=== PATIENT | female | born 1955 | race Caucasian/White ===

== ENCOUNTER 2017-03-19 10:44 | Emergency (ER) | payer BC ==
[2017-03-19] MEDS ORDERED: HYDROcodone/ACETAMIN 5-325 MG* 1 TAB PO ONE (11:42)
--- NOTE | 2017-03-19 12:39 | RAD ---
INDICATION: Atraumatic left knee pain in a patient 10 years status post TKA. COMPARISON: Postoperative left knee radiograph dated March 12, 2006 TECHNIQUE: 4 view radiograph of the left knee. FINDINGS: The left knee prosthesis is anatomically aligned in the AP, lateral and sunrise projections. There is no definite radiographic evidence of loosening or periprostatic fracture. There is no large joint effusion. Remaining visualized bones are intact and appropriately aligned. IMPRESSION: Anatomic alignment of left knee prosthesis without radiographic evidence of loosening or fracture. If the patient's symptoms persist, follow-up imaging is recommended.
[2017-03-19 13:07] VITALS: BP 112/64
--- NOTE | 2017-03-20 07:24 | ED ---
Amos Beckham Alfonso, scribed for Hunter Gu MD on 03/19/17 at 1206 . Lower Extremity - HPI Summary HPI Summary: This patient is a 61 year old F presenting to [facility] with a chief complaint of left knee pain since 1 week ago, worse since last night. The patient rates the pain 9/10 in severity. Symptoms aggravated by standing. Symptoms alleviated by nothing. PMHx includes left knee replacement in 2005. - History of Current Complaint Chief Complaint: EDExtremityLower Stated Complaint: LT KNEE PAIN Time Seen by Provider: 03/19/17 11:32 Hx Obtained From: Patient Onset of Pain: Prior to Arrival Onset/Duration: Worse Since - last night Severity Currently: Severe Pain Intensity: 9 Pain Scale Used: 0-10 Numeric Timing: Constant Location: Is Discrete @ - left knee Associated Signs And Symptoms: Positive: Negative Aggravating Factor(s): Standing Alleviating Factor(s): Nothing - Allergies/Home Medications Allergies/Adverse Reactions: Allergies Allergy/AdvReac Type Severity Reaction Status Date / Time Meloxicam Allergy Itching Verified 05/03/16 15:24 BANDAIDS Allergy REDNESS Uncoded 05/03/16 15:24 AROUND EDGES OF BANDAID PMH/Surg Hx/FS Hx/Imm Hx Endocrine/Hematology History: Denies: Hx Diabetes, Hx Thyroid Disease Cardiovascular History: Reports: Hx Hypertension - MEDS FOR HIGH BLOOD PRESSURE Denies: Hx Congestive Heart Failure, Hx Pacemaker/ICD, Other Cardiovascular Problems/Disorders Respiratory History: Reports: Hx Sleep Apnea Denies: Hx Asthma, Hx Chronic Obstructive Pulmonary Disease (COPD), Other Respiratory Problems/Disorders GI History: Denies: Hx Ulcer, Other GI Disorders History: Denies: Hx Renal Disease Musculoskeletal History: Reports: Hx Arthritis - LEFT KNEE,HIP, RIGHT KNEE, BILATERAL FINGERS, SHOULDERS Denies: Hx Osteoporosis, Other Musculoskeletal History Sensory History: Reports: Hx Contacts or Glasses - READING Denies: Hx Hearing Aid Opthamlomology History: Reports: Hx Contacts or Glasses - READING Neurological History: Denies: Other Neuro Impairments/Disorders Psychiatric History: Reports: Hx Anxiety - ON MEDICATION, Hx Depression - Cancer History Cancer Type, Location and Year: BREAST CA Hx Chemotherapy: No Hx Radiation Therapy: No - Surgical History Surgery Procedure, Year, and Place: [place] [facility] [place] [facility] [place] [facility] [place] LEFT KNEE [place]THROSCOPY[place] [facility] [place] 2007; LT KNEE REPLACEMENT '06;. 2006 [place] [facility] [place]. , [place] [facility] [place]. [place] [facility] [place] [facility] [place]ST[place] Hx Anesthesia Reactions: No Infectious Disease History: No Infectious Disease History: Denies: Hx Hepatitis, Hx Human Immunodeficiency Virus (HIV), Traveled Outside the US in Last 30 Days - Family History Known Family History: Positive: Diabetes Family History: Thyroid Disease, Kidney Cirrhosis - Social History Alcohol Use: None Substance Use Type: Reports: None Hx Tobacco Use: No Smoking Status (MU): Former Smoker Type: Cigarettes Amount Used/How Often: PACK A WEEK Have You Smoked in the Last Year: No Review of Systems Negative: Fever Positive: Other - left knee pain All Other Systems Reviewed And Are Negative: Yes Physical Exam - Summary Physical Exam Summary: VITAL SIGNS: Reviewed. GENERAL: Patient is a well-developed and nourished female who is lying comfortable in the stretcher. Patient is not in any acute respiratory distress. HEAD AND FACE: No signs of trauma. No ecchymosis, hematomas or skull depressions. No sinus tenderness. EYES: PERRLA, EOMI x 2, No injected conjunctiva, no nystagmus. EARS: Hearing grossly intact. Ear canals and tympanic membranes are within normal limits. MOUTH: Oropharynx within normal limits. NECK: Supple, trachea is midline, no adenopathy, no JVD, no carotid bruit, no c- spine tenderness, neck with full ROM. CHEST: Symmetric, no tenderness at palpation LUNGS: Clear to auscultation bilaterally. No wheezing or crackles. CVS: Regular rate and rhythm, S1 and S2 present, no murmurs or gallops appreciated. ABDOMEN: Soft, non-tender. No signs of distention. No rebound no guarding, and no masses palpated. Bowel sounds are normal. EXTREMITIES: No cyanosis or clubbing. Swelling at left knee. No deformity. Well healed of scar s/p total knee replacement. NEURO: Alert and oriented x 3. No acute neurological deficits. Speech is normal and follows commands. SKIN: Dry and warm. No erythema at the left knee. Triage Information Reviewed: Yes Vital Signs On Initial Exam: Initial Vitals Temp Pulse Resp BP Pulse Ox 99 F 80 16 111/63 97 03/19/17 11:24 03/19/17 11:24 03/19/17 11:24 03/19/17 11:24 03/19/17 11:24 Vital Signs Reviewed: Yes - David Coma Scale Coma Scale Total: 15 Diagnostics - Vital Signs Vital Signs Temp Pulse Resp BP Pulse Ox 03/19/17 11:24 99 F 80 16 111/63 97 - Laboratory Lab Statement: Any lab studies that have been ordered have been reviewed, and results considered in the medical decision making process. - Radiology Knee X-Ray Radiology Interpretation Completed By: Radiologist - Anatomic alignment of left knee prosthesis without radiographic evidence of loosening or fracture. If the patient's symptoms persist, follow-up imaging is recommended. ED physician has reviewed this radiology report and agrees. Lower Extremity Course/Dx - Course Assessment/Plan: This patient is a 61 year old F presenting to [facility] with a chief complaint of left knee pain since 1 week ago, worse since last night. The patient rates the pain 9/10 in severity. Symptoms aggravated by standing. Symptoms alleviated by nothing. PMHx includes left knee replacement in 2005. Knee X-Ray reveals Anatomic alignment of left knee prosthesis without radiographic evidence of loosening or fracture. If the patient's symptoms persist, follow-up imaging is recommended. ED physician has reviewed this radiology report and agrees. The patient is able to place weight on her knee, however, it increased the pain when she walks. There is no fever, erythema, or increased in knee temperature. Therefore, I have no suspicion for a septic or infected joint. The patient was instructed to return to the ED immediately for changing or worsening symptoms. She will be discharged home with PCP and orthopedic follow up. The patient is agreeable with this plan. The patient is hemodynamically stable, alert and oriented x3. - Diagnoses Provider Diagnoses: Left knee pain Discharge - Discharge Plan Condition: Stable Disposition: HOME Prescriptions: HYDROcodone/ACETAMIN 5-325 MG* [[place] 5-325 TAB*] 1 tab PO Q4H PRN #10 tab MDD 4 PRN Reason: Pain Patient Education Materials: Knee Pain (ED) Referrals: Darrian Lau MD [Primary Care Provider] - 3 Days Rangel Parnell MD [Medical Doctor] - 3 Days Additional Instructions: RETURN TO THE EMERGENCY DEPARTMENT FOR CHANGING OR WORSENING SYMPTOMS. The documentation as recorded by the Amos do Alfonso accurately reflects the service I personally performed and the decisions made by me, Hunter Gu MD.
== END 2017-03-19 13:29 | disposition home or self-care (01) ==
LOC: ED 10:44
DX: M25.562 Pain in left knee (principal); Z87.891 Personal history of nicotine dependence
CPT/HCPCS: 99282

== ENCOUNTER 2017-06-16 23:17 | Emergency (ER) | payer BC ==
--- OUTSIDE RECORDS SUMMARY | 2017-06-16 23:23 | XMS REPORT ---
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 Active Onset: 03/23/2017 Arthroplasty of knee Ursula Baum M.D. Active Family History Date Family Member(s) Problem(s) Comments General Diabetes General Cancer Social History Type Date Description Comments Marital Status Lives With Spouse Occupation Retired ETOH Use Denies alcohol use Smoking Patient is a former smoker Recreational Drug Use Denies Drug Use Exercise Type/Frequency Does not exercise Allergies, Adverse Reactions, Alerts Date Description Reaction Status Severity Comments 06/06/2016 Latex active 03/23/2017 Meloxicam active Medications Medication Date Status Form Strength Qnty SIG Indications Ordering Provider Diclofenac 03/23/ Active Tablets DR 75mg 30tabs 1 pill by M25.462 Ursula Sodium 2017 mouth Bautista, twice a M.D. day as needed for pain Hydrocodone-Shankar 03/23/ Active Tablets 5-325mg 90tabs 1 or 2 M25.462 Ursula taminophen 2017 tabs by Bautista, mouth M.D. every 6-8 hours as needed for pain Citalopram 00/00/ Active Tablets 40mg 1 by Unknown Hydrobromide 0000 mouth every day Enalapril 00/00/ Active Tablets 10mg 1 by Unknown Maleate 0000 mouth every day Vitamin B12 0000/ Active Tablets 1 by Unknown 0000 mouth every day Multivitamins 0000/ Active Capsules 1 by Unknown 0000 mouth every day Citracal Plus 00/00/ Active Tablets daily Unknown 0000 Anastrozole 00/ Active Tablets 1mg 1 by Unknown 0000 mouth every day Vitamin D-3 / Active Capsules 1000Unit 1 by Unknown 0000 mouth every day Tramadol HCL / Hx Tablets 50mg 1-2 Unknown 0000 tablets every 6 hours as needed Diclofenac / Hx Tablets DR 75mg take 1 Unknown Sodium 0000 - tablet twice a 2016 day with food Hydrocodone-Shankar / Hx Tablets 5-325mg Take One Unknown taminophen 0000 - Tablet Every 4 2017 Hours as Needed For Pain. Max. Daily Dose 4 T Depomedrol 40MG 00/ Active Injection Ursula 0000 Shaun Baum Depomedrol 40MG 00/00/ Active Injection Ursula 0000 Shaun Baum Vital Signs Date Vital Result Comment 05/28/2017 Height 67 inches 5'7" Weight 200.00 lb Heart Rate 76 /min BP Systolic 148 mmHg BP Diastolic 94 mmHg Body Temperature 97.7 F BMI (Body Mass Index) 31.3 kg/m2 04/09/2017 Height 67 inches 5'7" Weight 196.00 lb Heart Rate 68 /min BP Systolic 118 mmHg BP Diastolic 80 mmHg Respiratory Rate 16 /min Pain Level 3 BMI (Body Mass Index) 30.7 kg/m2 03/23/2017 Height 67 inches 5'7" Weight 196.00 lb Respiratory Rate 20 /min Body Temperature 97.3 F Pain Level 8 BMI (Body Mass Index) 30.7 kg/m2 06/08/2016 Height 67 inches 5'7" Weight 196.00 lb Heart Rate 68 /min BP Systolic 142 mmHg BP Diastolic 92 mmHg Respiratory Rate 16 /min Body Temperature 97.6 F BMI (Body Mass Index) 30.7 kg/m2 06/10/2015 Height 67 inches 5'7" Weight 186.00 lb BMI (Body Mass Index) 29.1 kg/m2 Results Test Date Test Result H/L Range Note Laboratory test finding 03/27/2017 C Reactive Protein 8.71 mg/L High < 5.00 1 Erythrocyte Sed Rate 31 mm/Hr High 0-30 CBC Auto Diff 03/27/2017 White Blood Count 4.8 10^3/uL 3.5-10.8 Red Blood Count 4.52 10^6/uL 4.0-5.4 Hemoglobin 12.5 g/dL 12.0-16.0 Hematocrit 38 % 35-47 Mean Corpuscular Volume 84 fL 80-97 Mean Corpuscular Hemoglobin 28 pg 27-31 Mean Corpuscular HGB Conc 33 g/dL 31-36 Red Cell Distribution Width 14 % 10.5-15 Platelet Count 274 10^3/uL 150-450 Mean Platelet Volume 10 um3 7.4-10.4 Abs Neutrophils 2.9 10^3/uL 1.5-7.7 Abs Lymphocytes 1.3 10^3/uL 1.0-4.8 Abs Monocytes 0.4 10^3/uL 0-0.8 Abs Eosinophils 0.2 10^3/uL 0-0.6 Abs Basophils 0.1 10^3/uL 0-0.2 Abs Nucleated RBC 0 10^3/uL Granulocyte % 59.8 % 38-83 Lymphocyte % 26.7 % 25-47 Monocyte % 8.6 % 1-9 Eosinophil % 3.6 % 0-6 Basophil % 1.3 % 0-2 Nucleated Red Blood Cells % 0 Bariatric Panel Post Op 05/26/2016 Ferritin 16.2 ng/mL 11-307 Vitamin B12 730 pg/mL 180-914 2 Folic Acid (Folate) > 20.00 ng/mL >3.99 Vitamin D Total 25(Oh) 18.0 ng/mL Low 30-50 Vitamin B1 (Whole Blood) 147 nmol/L 70-180 3 Vitamin E Level 9.8 mg/L 5.5 - 17.0 4 Comp Metabolic Panel 05/26/2016 Sodium 141 mmol/L 133-145 Potassium 4.1 mmol/L 3.5-5.0 Chloride 107 mmol/L 101-111 Co2 Carbon Dioxide 27 mmol/L 22-32 Anion Gap 7 mmol/L 2-11 Glucose 96 mg/dL 70-100 Blood Urea Nitrogen 22 mg/dL 6-24 Creatinine 0.76 mg/dL 0.51-0.95 BUN/Creatinine Ratio 28.9 High 8-20 Calcium 9.2 mg/dL 8.6-10.3 Total Protein 6.7 g/dL 6.4-8.9 Albumin 4.0 g/dL 3.2-5.2 Globulin 2.7 g/dL 2-4 Albumin/Globulin Ratio 1.5 1-3 Total Bilirubin 0.40 mg/dL 0.2-1.0 Alkaline Phosphatase 92 U/L 34-104 Alt 32 U/L 7-52 Ast 37 U/L 13-39 Egfr Non- 77.1 >60 Egfr 99.2 >60 5 CBC Auto Diff 05/26/2016 White Blood Count 4.7 10^3/uL 3.5-10.8 Red Blood Count 4.60 10^6/uL 4.0-5.4 Hemoglobin 12.9 g/dL 12.0-16.0 Hematocrit 39 % 35-47 Mean Corpuscular Volume 85 fL 80-97 Mean Corpuscular Hemoglobin 28 pg 27-31 Mean Corpuscular HGB Conc 33 g/dL 31-36 Red Cell Distribution Width 14 % 10.5-15 Platelet Count 173 10^3/uL 150-450 Mean Platelet Volume 11 um3 High 7.4-10.4 Abs Neutrophils 2.7 10^3/uL 1.5-7.7 Abs Lymphocytes 1.3 10^3/uL 1.0-4.8 Abs Monocytes 0.5 10^3/uL 0-0.8 Abs Eosinophils 0.2 10^3/uL 0-0.6 Abs Basophils 0 10^3/uL 0-0.2 Abs Nucleated RBC 0 10^3/uL Granulocyte % 57.5 % 38-83 Lymphocyte % 27.5 % 25-47 Monocyte % 10.8 % High 1-9 Eosinophil % 3.2 % 0-6 Basophil % 1.0 % 0-2 Nucleated Red Blood Cells % 0 Iron & Iron Binding Capacity 05/26/2016 Iron 69 g/dL 50-212 Unsaturated Iron Binding 392 g/dL Total Iron Binding Capacity 461 g/dL High 250-450 % Iron Saturation 15 % 15-55 1 Acute inflammation: >10.00 2 Normal Range 180 to 914 Indeterminate Range 145 to 180 Deficient Range <145 3 ADDITIONAL INFORMATION This test was developed and its performance characteristics determined by [facility] in a manner consistent with CLIA requirements. This test has not been cleared or approved by the U.S. Food and Drug Administration. Test Performed by: [facility] [place] [address] Assistant In Nursing: Jose Heaton II, M.D., Ph.D. 4 ADDITIONAL INFORMATION This test was developed and its performance characteristics determined by [facility] in a manner consistent with CLIA requirements. This test has not been cleared or approved by the U.S. Food and Drug Administration. Test Performed by: [place] [address] Assistant In Nursing: Jose Heaton II, M.D., Ph.D. 5 Because ethnic data is not always readily available, this report includes an eGFR for both -Americans and non- Americans. The National Kidney Disease Education Program (NKDEP) does not endorse the use of the MDRD equation for patients that are not between the ages of 18 and 70, are , have extremes of body size, muscle mass, or nutritional status, or are non- or non-. According to the National Kidney Foundation, irrespective of diagnosis, the stage of the disease is based on the level of kidney function: Stage Description GFR(mL/min/1.73 m(2)) 1 Kidney damage with normal or decreased GFR 90 2 Kidney damage with mild decrease in GFR 60-89 3 Moderate decrease in GFR 30-59 4 Severe decrease in GFR 15-29 5 Kidney failure <15 (or dialysis) Procedures Date CPT Code Description Status 07/30/2014 20300 Mastectomy Simple Complete Completed 07/13/2014 Mammogram Completed 07/06/2014 Mammogram Completed 05/15/2012 42875 EKG, Interpretation Only Completed 01/10/2012 23846 Polysomnography Sleep Staging 4+ Parameters W/Cpap Completed 12/13/2011 36879 Polysomnography Sleep Staging 4+ Parameters Completed 12/13/2011 90342 Polysomnography Sleep Staging 4+ Parameters Completed Encounters Type Date Location Provider CPT E/M Dx Office Visit 04/09/2017 [facility]um M.D. 40042 M25.562 10:15a [facility] [place] Z96.652 Office Visit 03/23/2017 2:30p [facility] Baum M.D. 14146 M25.562 [place] M25.462 Z96.652 T84.84xA Office Visit 06/08/2016 10:15a [facility] [place], [address] Z98.84 [facility] ED E55.9 Plan of Care Future Appointment(s):06/29/2017 1:45 pm - Ursula Baum M.D. at [facility]
[2017-06-17] MEDS ORDERED: oxyCODONE/Acetamin 5/325 MG* TAB PO ONE (01:33)
[2017-06-17 01:59] VITALS: BP 119/89
--- NOTE | 2017-06-17 02:36 | ED ---
Saman Beckham Tiffany, scribed for Orestes Berrios on 06/17/17 at 0009 . Lower Extremity - HPI Summary HPI Summary: This patient is a 61 year old F BIBA to [facility] accompanied by with a chief complaint of left knee pain s/p slipping and falling on ice two hours ago. The patient rates the pain 3/10 in severity. Symptoms aggravated by nothing. Symptoms alleviated by nothing. Patient denies hip pain and pelvic pain. The patient had surgery on her left knee 11 years ago. - History of Current Complaint Chief Complaint: EDExtremityLower Stated Complaint: LT KNEE INJURY Time Seen by Provider: 06/16/17 23:55 Hx Obtained From: Patient Mechanism Of Injury: Other - Slip and fall on ice Onset/Duration: Hours - 2 hrs Severity Currently: Mild Pain Intensity: 3 Pain Scale Used: 0-10 Numeric Associated Signs And Symptoms: Positive: Negative - Hip pain, pelvic pain Aggravating Factor(s): Nothing Alleviating Factor(s): Nothing - Allergies/Home Medications Allergies/Adverse Reactions: Allergies Allergy/AdvReac Type Severity Reaction Status Date / Time Meloxicam Allergy Itching Verified 06/16/17 23:53 BANDAIDS Allergy REDNESS Uncoded 06/16/17 23:53 AROUND EDGES OF BANDAID PMH/Surg Hx/FS Hx/Imm Hx Previously Healthy: No Endocrine/Hematology History: Denies: Hx Diabetes, Hx Thyroid Disease Cardiovascular History: Reports: Hx Hypertension - MEDS FOR HIGH BLOOD PRESSURE Denies: Hx Congestive Heart Failure, Hx Pacemaker/ICD, Other Cardiovascular Problems/Disorders Respiratory History: Reports: Hx Sleep Apnea Denies: Hx Asthma, Hx Chronic Obstructive Pulmonary Disease (COPD), Other Respiratory Problems/Disorders GI History: Denies: Hx Ulcer, Other GI Disorders History: Denies: Hx Renal Disease Musculoskeletal History: Reports: Hx Arthritis - LEFT KNEE,HIP, RIGHT KNEE, BILATERAL FINGERS, SHOULDERS Denies: Hx Osteoporosis, Other Musculoskeletal History Sensory History: Reports: Hx Contacts or Glasses - READING Denies: Hx Hearing Aid Opthamlomology History: Reports: Hx Contacts or Glasses - READING Neurological History: Denies: Other Neuro Impairments/Disorders Psychiatric History: Reports: Hx Anxiety - ON MEDICATION, Hx Depression - Cancer History Cancer Type, Location and Year: BREAST CA Hx Chemotherapy: No Hx Radiation Therapy: No - Surgical History Surgery Procedure, Year, and Place: [address] [place] [address]. 1984 [place] [facility] [place] [facility] [place]. 1997 LEFT [place]NEE [place], [facility] [place]; LT KNEE REPLACEMENT ';. 2005 LEFT KNEE [place]PLAC[place], [facility] [place] RT MASTECTOMY. , GASTRIC BYPASS, [facility] [place]. 2007 LEFT KNEE ARTHROSCOPY, [facility] [place]. 03/2012 COLONOSCOPY , [facility] [place] RT MASTECTOMY Hx Anesthesia Reactions: No - Immunization History Date of Tetanus Vaccine: unk Date of Influenza Vaccine: 2016 Infectious Disease History: No Infectious Disease History: Denies: Hx Hepatitis, Hx Human Immunodeficiency Virus (HIV), Traveled Outside the US in Last 30 Days - Family History Known Family History: Positive: Diabetes Family History: Thyroid Disease, Kidney Cirrhosis - Social History Alcohol Use: None Hx Substance Use: No Substance Use Type: Reports: None Hx Tobacco Use: Yes Smoking Status (MU): Former Smoker Type: Cigarettes Amount Used/How Often: PACK A WEEK Have You Smoked in the Last Year: No Review of Systems Negative: Fever Positive: Other - Left knee pain; NEGATIVE: pelvic pain, hip pain All Other Systems Reviewed And Are Negative: Yes Physical Exam - Summary Physical Exam Summary: Appearance: Well appearing, no pain distress Skin: warm, dry, reflects adequate perfusion Head/face: normal Eyes: EOMI, HAROON ENT: normal Neck: supple, non-tender Respiratory: CTA, breath sounds present Cardiovascular: RRR, pulses symmetrical Abdomen: non-tender, soft Bowel: present Musculoskeletal: deformed left knee, restricted range of motion in the left leg Neuro: normal, sensory motor intact, A&Ox3 Triage Information Reviewed: Yes Vital Signs On Initial Exam: Initial Vitals Temp Pulse Resp BP Pulse Ox 98.6 F 76 16 132/92 97 06/16/17 23:52 06/16/17 23:52 06/16/17 23:52 06/16/17 23:52 06/16/17 23:52 Vital Signs Reviewed: Yes - [place] Coma Scale Coma Scale Total: 15 Diagnostics - Vital Signs Vital Signs Temp Pulse Resp BP Pulse Ox 06/16/17 23:52 98.6 F 76 16 132/92 97 - Laboratory Lab Statement: Any lab studies that have been ordered have been reviewed, and results considered in the medical decision making process. - Radiology Left knee Radiology Interpretation Completed By: ED Physician - Tibial fracture Lower Extremity Course/Dx - Course Course Of Treatment: This patient is a 61 year old F c/o of left knee pain s/p slipping and falling on ice two hours ago. Knee X-Ray reveals, per ED physician , tibial fracture. We discussed patient care with Dr. Perez (orthopedics) who recommended follow up with orthopedics in three days. Patient will be discharged with prescription for Percocet and follow up from orthopedics. The patient is agreeable with this plan. - Diagnoses Differential Diagnosis/HQI/PQRI: Positive: Arthritis, Contusion, Fracture ( Closed), Strain Provider Diagnoses: Knee fracture, left, Tibial fracture - Physician Notifications Discussed Care Of Patient With: Leighann Perez Time Discussed With Above Provider: 00:46 Instructed by Provider To: Other - Dr. Perez (orthopedics) who recommended follow up from orthopedics in 3 days. Discharge - Discharge Plan Condition: Stable Disposition: HOME Prescriptions: oxyCODONE/Acetamin 5/325 MG* [Percocet 5/325 TAB*] 1 tab PO Q8H PRN #20 tab MDD 4 PRN Reason: Pain Patient Education Materials: Knee Pain (ED) Referrals: Darrian Lau MD [Primary Care Provider] - Ursula Baum MD [Medical Doctor] - 3 Days Additional Instructions: Follow up with Dr. Baum (orthopedics) in 3 days. Return to the Emergency Room if current symptoms worsen or if new symptoms develop. The documentation as recorded by the Saman do Tiffany accurately reflects the service I personally performed and the decisions made by , Orestes Berrios.
--- NOTE | 2017-06-17 09:08 | RAD ---
Indication: Left knee injury. 3 views of the left knee are reviewed. Soft tissue swelling is noted. Bony fragment off the tibial tuberosity is noted likely representing avulsion of the tibial tuberosity. The prosthesis appears to be displaced. IMPRESSION: Avulsion of the tibial tuberosity. Patient is status post left knee replacement.
== END 2017-06-17 01:58 | disposition home or self-care (01) ==
LOC: ED 23:17
DX: S82.142A Displaced bicondylar fracture of left tibia, initial encounter for closed fracture (principal); W00.0XXA Fall on same level due to ice and snow, initial encounter; Y93.9 Activity, unspecified; Y92.9 Unspecified place or not applicable; Y99.9 Unspecified external cause status; Z87.891 Personal history of nicotine dependence
CPT/HCPCS: 99282

== ENCOUNTER 2017-06-27 09:13 | Inpatient (IN) | payer BC ==
[~2017-06-27 09:13] MED LIST: Buffered Lidocaine 0.9% SYRIN* 5 ML/SYR SYRINGE INTRADERM ONE; Dexamethasone IV* 4 MG/ML 1 ML (4 MG) IV SLOW PU ONE; Famotidine IV* 10 MG/ML 2 ML (20 mg) IV ONE
[2017-06-27] MEDS ORDERED: Famotidine IV* 10 MG/ML 2 ML (20 mg) ONE (09:32)
[2017-06-27] MEDS ORDERED: Dexamethasone IV* 4 MG/ML 1 ML (4 MG) ONE (09:32)
[2017-06-27] MEDS ORDERED: Buffered Lidocaine 0.9% SYRIN* 5 ML/SYR SYRINGE ONE (09:32)
[2017-06-27] MEDS ORDERED: ceFAZolin 2 GM PREMIX (*) 2 GM/50 ML BAG IVPB ONE (09:32)
[2017-06-27] MEDS ORDERED: fentaNYL* 50 MCG/ML 5 ML VIAL (250 MCG VIAL) ONE (11:30)
[2017-06-27] MEDS ORDERED: Atracurium* 10 MG/ML 10 ML VIAL ONE (11:30)
[2017-06-27] MEDS ORDERED: Ketorolac INJ* 30 MG/ML 1 ML VIAL ONE (11:31)
[2017-06-27] MEDS ORDERED: Ondansetron INJ* 2 MG/ML VIAL ONE (11:31)
[2017-06-27] MEDS ORDERED: Propofol* 10 MG/ML 20 ML BTL IV PUSH ONE (11:31)
[2017-06-27] MEDS ORDERED: Lidocaine 2% PF * 5 ML VIAL ONE (11:31)
[2017-06-27] MEDS ORDERED: Midazolam* 1 MG/ML 10 ML VIAL (10 MG) ONE (11:31)
[2017-06-27] MEDS ORDERED: fentaNYL* 50 MCG/ML 2 ML VIAL (100 MCG VIAL) ONE ×2 (12:36→12:54)
[2017-06-27] MEDS ORDERED: Naloxone* 0.4 MG/ML 1 ML VIAL IV PRN (13:08)
[2017-06-27] MEDS ORDERED: fentaNYL* 50 MCG/ML 2 ML VIAL (100 MCG VIAL) IV PRN (13:08)
[2017-06-27] MEDS ORDERED: Scopolamine 1.5 mg* PATCH TRANSDERM PRN (13:08)
[2017-06-27] MEDS ORDERED: Ondansetron INJ* 2 MG/ML VIAL IV PRN (13:08)
[2017-06-27] MEDS ORDERED: DiMENhydriNATE IV* 50 MG/ML VIAL IV PUSH PRN (13:08)
[2017-06-27] MEDS ORDERED: Metoprolol Tartrate IV* 1 MG/ML 5 ML VIAL ONE (13:15)
[2017-06-27] MEDS ORDERED: EPHEDrine (Pressors)* 50 MG/ML VIAL ONE (14:39)
--- NOTE | 2017-06-27 18:22 | RAD ---
INDICATION: Displaced fracture of the LEFT tibial tuberosity. COMPARISON: No relevant prior exams available on the [facility] PACS for comparison. TECHNIQUE: 7.4 seconds fluoroscopy. REPORT AND IMPRESSION: 6 spot images of the LEFT documented a Benson type B spiral fracture of the distal fibula terminating inferiorly at the level of the ankle mortise with only one cortex width lateral displacement and slight widening of the ankle mortise. CPT II Codes: 6045F
--- NOTE | 2017-06-27 18:28 | RAD ---
INDICATION: Open reduction and internal fixation LEFT tibial tuberosity. COMPARISON: June 17, 2017 radiographs. TECHNIQUE: 62.6 seconds fluoroscopy. FINDINGS: Spot images document placement of a solitary screw at the tibial tuberosity fracture site with restored anatomic alignment and a cerclage wire extending between the patella and the proximal tibia inferior to the level of the tibial tuberosity fracture site. IMPRESSION: Procedural fluoroscopy. CPT II Codes: 6045F
[2017-06-27] MEDS ORDERED: oxyCODONE/Acetamin 5/325 MG* TAB ONE ×2 (19:03→23:44)
[2017-06-27] MEDS ORDERED: HYDROmorphone INJ* 1 MG/ML CARPUJECT SYRINGE ONE (19:03)
[2017-06-27] MEDS: HYDROmorphone INJ* 1 MG/ML CARPUJECT SYRINGE IV PRN ×2 (19:05→19:10)
[2017-06-27] MEDS: oxyCODONE/Acetamin 5/325 MG* TAB PO PRN ×2 (19:08→19:09)
[2017-06-27] MEDS ORDERED: Magnesium Hydroxide LIQ* 30 ML UDC PO PRN (19:21)
[2017-06-27] MEDS ORDERED: Morphine INJ* 2 MG/ML 1 ML SYRINGE (TWO MG - NEW SYRINGE VERSION) IV PRN (19:21)
[2017-06-27] MEDS ORDERED: Ondansetron TAB* 4 MG PO PRN (19:21)
[2017-06-27] MEDS ORDERED: oxyCODONE TAB* 5 MG TAB PO PRN (19:21)
[2017-06-27] MEDS ORDERED: ZOLMITRIPTAN 5 MG PO PRN (19:33)
[2017-06-27] MEDS ORDERED: Morphine INJ* 2 MG/ML 1 ML SYRINGE (TWO MG - NEW SYRINGE VERSION) ONE (21:50)
--- NOTE | 2017-06-27 21:58 | RAD ---
Indication: Traumatic injury with tibial tuberosity periprosthetic fracture. Assess for ankle fracture. Comparison: Spot fluoroscopic images of the same date. Technique: AP, mortise, and crosstable lateral views LEFT ankle. Report: Splint limits image quality. Oblique grossly nondisplaced fracture of the distal metaphysis of the fibula terminating inferiorly at the level of the ankle mortise. No associated fracture of the medial malleolus. Congruent ankle mortise. Bone density appears decreased throughout. IMPRESSION: Benson type B distal fibular fracture without displacement.
[2017-06-27] MEDS: ceFAZolin 1 GM VIAL(*) 1 GM in NS 0.9% 50 ML* 50 ML IVPB SCH (23:03)
[2017-06-28] MEDS: Aspirin TAB* 325 MG PO SCH ×3 (03:03→21:40)
[2017-06-28] MEDS: Calcium Citrate TAB* 200 MG PO SCH ×3 (03:03→21:42)
[2017-06-28] MEDS: Magnesium Hydroxide LIQ* 30 ML UDC PO SCH ×3 (03:03→21:40)
[2017-06-28] MEDS: oxyCODONE/Acetamin 5/325 MG* TAB PO PRN ×4 (04:25→17:52)
[2017-06-28] MEDS: ceFAZolin 1 GM VIAL(*) 1 GM in NS 0.9% 50 ML* 50 ML IVPB SCH ×2 (06:01→15:35)
[2017-06-28 06:15] LABS: EGFR Non-African American 76.9 (>60)
[2017-06-28] MEDS ORDERED: Anastrozole (NF) 1 MG TAB PO SCH (09:00)
[2017-06-28] MEDS: Enalapril TAB* 5 MG PO SCH (09:46)
[2017-06-28] MEDS: Citalopram TAB* 40 MG PO SCH (09:47)
[2017-06-28] MEDS: Multivitamins/Minerals TAB PO SCH (09:47)
[2017-06-28] MEDS: Cholecalciferol TAB* 1000 UNITS PO SCH (09:48)
[2017-06-28] MEDS: Ascorbic Acid TAB* 500 MG PO SCH (09:48)
[2017-06-28] MEDS: PTO: Anastrozole (NF) 1 MG TAB PO SCH (10:39)
--- NOTE | 2017-06-28 13:23 | PN ---
Progress Note - Progress Note Date of Service: 06/28/17 SOAP: Subjective: []Patient seen at bedside. She is in a great deal of pain and concerned about going home at this time. Objective: []General: Calm and cooperative, NAD LLE: Splint CDI. Sensation intact and brisk capillary refill of exposed toes. Vital Signs Temp 98.7 F 06/28/17 11:06 Pulse 78 06/28/17 11:06 Resp 16 06/28/17 12:20 BP 108/65 06/28/17 11:06 Pulse Ox 98 06/28/17 11:06 Intake & Output 06/27/17 06/28/17 06/28/17 18:59 06:59 18:59 Intake Total 7567 613 2339 Output Total 0 0 Balance 8124 354 6623 Weight 200 lb Intake: IV Fluids 0299 871 6981 Cefazolin 55 LR 1300 200 980 NS 50ML, Cefazolin 2G 50 IVPB 55 Cefazolin 55 Oral 400 Output: Urine 0 0 Other: Estimated Void Medium Estimated Blood Loss MINIMAL Comment # Voids 1 Laboratory Last Values Sodium 136 mmol/L (133-145) 06/28/17 05:49 Potassium 3.8 mmol/L (3.5-5.0) 06/28/17 05:49 Chloride 106 mmol/L (101-111) 06/28/17 05:49 Carbon Dioxide 24 mmol/L (22-32) 06/28/17 05:49 Anion Gap 6 mmol/L (2-11) 06/28/17 05:49 BUN 24 mg/dL (6-24) 06/28/17 05:49 Creatinine 0.76 mg/dL (0.51-0.95) 06/28/17 05:49 Est GFR ( Amer) 98.8 (>60) 06/28/17 05:49 Est GFR (Non-Af Amer) 76.9 (>60) 06/28/17 05:49 BUN/Creatinine Ratio 31.6 (8-20) H 06/28/17 05:49 Glucose 149 mg/dL (70-100) H 06/28/17 05:49 Calcium 8.4 mg/dL (8.6-10.3) L 06/28/17 05:49 Assessment: []POD 1 s/p left tibial tuberosity ORIF, patellar ostectomy Plan: []NWB LLE Dr. Patel will see patient tonight for further discussion of plan May require rehab <Taisha Ramsay - Last Filed: 06/28/17 13:30> - Progress Note SOAP: Subjective: Pain left knee and ankle. Doesn't think can go home with NWB LLE. Objective: NAD. Comfortable. LLE - knee brace and short leg splint - NVID x-rays from PACU show ~ 2mm displacement of lateral malleolus, symmetric mortisse Assessment: POD 1 ORIF left periprosthetic tibial tuberosity fracture Closed treatment left ankle fracture Plan: - PT - Pain control - We discussed intra-op and postop xrays, diagnosis of left ankle lateral malleolus fracture. Stable per stress testing intraop. 2 mm of displacement can be treated non-op or op. We discussed benefits and risks of each. I was happy to treat either way. Given it is less than 3mm with stable mortisse, patient's age and her presence of TKA, we decided to treat non-op - Dispo planning - f/u with mein office ~ 14 days postop with xrays and wound check <Austyn Patel - Last Filed: 06/28/17 22:39>
[2017-06-29] MEDS: oxyCODONE/Acetamin 5/325 MG* TAB PO PRN ×3 (00:25→17:23)
[2017-06-29] MEDS: PTO: Anastrozole (NF) 1 MG TAB PO SCH (09:59)
[2017-06-29] MEDS: Enalapril TAB* 5 MG PO SCH (09:59)
[2017-06-29] MEDS: Aspirin TAB* 325 MG PO SCH ×2 (10:00→21:17)
[2017-06-29] MEDS: Citalopram TAB* 40 MG PO SCH (10:00)
--- NOTE | 2017-06-29 10:28 | PN ---
Progress Note - Progress Note Date of Service: 06/29/17 SOAP: Subjective: [Pt was seen sitting up in bed today. She states that she is feeling quite well. Pain is mild and well controlled. States that she was feeling some numbness and tingling of the toes yesterday but has noticed that it is improving today. She admits to vomiting a small amount this am but has not had any issue since then. She states that is hoping to go to [facility]RU today if possible. ] Objective: [General: Pt is alert and oriented x3 MSK: LLE: Dressing is c/d/i. Knee immobilize is in place and locked at 0. Pt is able to wiggle toes and has sensation in toes. Cap refill is less than 2 seconds. ] Vital Signs Temp 98.0 F 06/29/17 07:15 Pulse 81 06/29/17 07:15 Resp 16 06/29/17 09:32 BP 119/69 06/29/17 07:15 Pulse Ox 97 06/29/17 08:00 Intake & Output 06/28/17 06/29/17 06/29/17 18:59 06:59 18:59 Intake Total 1285 610 240 Output Total 825 0 Balance 1285 -215 240 Intake: IV Fluids 1085 Cefazolin 105 LR 980 Oral 200 610 240 Output: Urine 825 0 Other: Estimated Void Medium # Bowel Movements 0 # Voids 1 Assessment: [POD 2 ORIF left periprosthetic tibial tuberosity fracture Closed treatment left ankle fracture] Plan: [Continue with splint of left ankle Continue with NWB LLE Continue with PT Possible PMRU today. ]
[2017-06-29] MEDS: Ascorbic Acid TAB* 500 MG PO SCH (10:31)
[2017-06-29] MEDS: Multivitamins/Minerals TAB PO SCH (10:31)
[2017-06-29] MEDS: Cholecalciferol TAB* 1000 UNITS PO SCH (10:31)
[2017-06-29] MEDS: Calcium Citrate TAB* 200 MG PO SCH ×2 (10:32→21:18)
[2017-06-29] MEDS: Magnesium Hydroxide LIQ* 30 ML UDC PO SCH ×2 (10:34→21:18)
[2017-06-29 11:23] LABS: ABS Basophils 0 10^3/ul (0-0.2); ABS Eosinophils 0 10^3/ul (0-0.6); ABS Lymphocytes 0.8 10^3/ul (1.0-4.8); ABS Monocytes 0.5 10^3/ul (0-0.8); ABS Neutrophils 3.9 10^3/ul (1.5-7.7); ABS Nucleated RBC 0 10^3/ul; Eosinophil % 0.6 % (0-6); Hematocrit 27 % (35-47); Hemoglobin 9.1 g/dl (12.0-16.0); Mean Corpuscular HGB Conc 34 g/dl (31-36); Mean Corpuscular Hemoglobin 28 pg (27-31); Mean Corpuscular Volume 84 fL (80-97); Mean Platelet Volume 10 um3 (7.4-10.4); Nucleated Red Blood Cells % 0; Platelet Count 181 10^3/ul (150-450); Red Blood Count 3.23 10^6/ul (4.0-5.4); Red Cell Distribution Width 16 % (10.5-15); White Blood Count 5.2 10^3/ul (3.5-10.8)
[2017-06-29 11:36] LABS: EGFR Non-African American 84.5 (>60)
--- NOTE | 2017-06-29 15:12 | OP ---
OPERATIVE REPORT: DATE OF OPERATION: 06/27/17 DATE OF : 51 SURGEON: Austyn Patel MD VULCANIZER OPERATOR: JUAN CARLOS Cristina A physician admin assistant was required for the length of the procedure for help with positioning, instrumentation and closure. ANESTHESIOLOGIST: Dr. Gee Nolan. ANESTHESIA: General anesthesia. PRE-OP DIAGNOSES: 1. Left knee periprosthetic tibial tuberosity fracture with patellar tendon avulsion. 2. History of painful left total knee arthroplasty, 2005, with 2006 arthroscopic lateral release and anterior debridement, both done by Dr. Doll. 3. Left ankle pain. POST-OP DIAGNOSES: 1. Left knee periprosthetic tibial tuberosity fracture, a patellar tendon avulsion. 2. History of painful left total knee arthroplasty. 3. Lateral patellofemoral impingement. 4. Left knee patella baja/infera. 5. Left total knee arthroplasty, stable components and no polyethylene wear. 6. Left ankle lateral malleolus fracture. OPERATIVE PROCEDURE: 1. Open reduction internal fixation, left tibial tuberosity fracture, periprosthetic. 2. Left knee open ostectomy. 3. Left knee, open evaluation of components of total knee arthroplasty. 4. Examination under anesthesia, left ankle (stress test radiographic views). 5. Closed treatment of left ankle lateral malleolus fracture 6. Short leg splint application left ankle ANTIBIOTICS: Ancef 2 g IV. IV FLUIDS: 1200 cc crystalloid. TOURNIQUET TIME: 150 minutes total at 300 mmHg. This was subdivided into 120 minutes up of tourniquet, then down for approximately 1 hour, then up for 30 additional minutes. COMPLICATIONS: None. ESTIMATED BLOOD LOSS: Less than 100 cc. IMPLANTS: One Synthes 4.0 mm cancellous screw with washer, fully threaded. Two biocomposite Mitek Diogenes and Diogenes gryphon anchors. One metal suture anchor, 3.5 mm in size, from [employer]. 16-gauge steel wire. SPECIMEN: None. 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 The patient went to emergency room where she was placed in a knee immobilizer and given [place]. X-rays determined that she had a tibial tuberosity fracture. No clear loosening in the components was noted by x-ray. The patient's left knee orthopedic history was significant for a left total knee arthroplasty, posterior stabilized, by Dr. Doll in 2005. Patient had a John NexGen Legacy posterior stabilized knee placed. The patient states that after that surgery she always had some anterior knee pain and some limitation of knee flexion. In 2006, Dr. Doll performed an arthroscopic lateral retinacular release of that knee. The patient continued, however, to have some anterior knee pain. The patient more recently saw Dr. Baum in 2016 complaining of some knee pain and swelling, mostly anterior. The patient was noted to be diabetic with a hemoglobin A1c of 6.3 status post gastric bypass surgery. Dr. Baum detected a slightly increased ESR and CRP, but no left shift or elevated white count. The patient was offered a polyethylene exchange, liner exchange, but declined and it was thought that the effusion might be secondary to polyethylene wear. I discussed the surgical procedure with the patient. I discussed how potentially devastating an extensor mechanism injury can be in a patient with a knee arthroplasty in place. Therefore, I was guarded about the prospects for successful surgical treatment. I discussed open reduction internal fixation with her. As well as I discussed evaluating the implants for their stability. I told the patient that I might consider evaluating the patellofemoral compartment given her long history of anterior knee pain for its fitness. In the preoperative holding, just prior to surgery, the patient described some left ankle pain that she had not before shared with me. I therefore agreed to image that intraoperatively and evaluate and treat as needed. DESCRIPTION OF PROCEDURE: In preoperative holding, the patient signed a surgical written consent form. Prior to that signature, we had discussed risks and potential complications including bleeding, infection, nerve or blood vessel injury, blood clot, knee pain, stiffness, failure of extensor mechanism repair. The patient's operative extremity was marked in preoperative holding. The patient was taken back to the operating room and placed supine on operating room table. The patient was sedated and intubated. A radiolucent table was used. [place] bump was placed under the left hemipelvis. Bone foam was applied. A mini time-out was performed prior to draping. Large C-arm was brought in. C- arm images were obtained of the left ankle. Indeed, there was seen a left ankle lateral malleolus fracture, minimally displaced. No medial malleolus fracture or posterior malleolus fracture was detected. Minimal displacement along the lateral malleolus fracture line was appreciated, approximately 2 to 3 mm to my eyes. I performed an external rotation stress test view. This showed, at most, gapping of one or so additional millimeters. I decided at this point, that I was going to mobilize the ankle with a splint at the conclusion of the procedure. I would get formal x-rays postoperative that I could more accurately measure the amount of displacement present, and discuss postoperatively, any need for a left ankle surgery, with plates and screws. However, I thought that it was unlikely that this would be required. The patient's left ankle was stable to external rotation stress testing and displacement was minimal. The left lower extremity had a proximal thigh tourniquet applied. The left lower extremity was prepped with chlorhexidine about the foot and ChloraPrep from foot to thigh. Draping was performed. Surgical time-out was performed. An Esmarch was applied and the tourniquet was elevated. An additional sterile bump was placed under the knee to get the knee to approximately 45 degrees of flexion. I made a skin incision, midline, from the distal end of the prior surgical incision scar down to distal to the tibial tuberosity midline anterior. I switched knives and I dissected down to the extensor mechanism. I saw, clearly, the avulsed small amount of bone with patellar tendon attached. There was significant amount of clotted blood that was removed from the wound. Irrigation. I probed the implants with metal instrument and they were stable. I decided that I would address the patellofemoral compartment and the cause of the patient's chronic pain, when I encountered significant patella baja and fibrotic tissue deep to the patellar tendon and patellar button. At this point, since I would be exposing more of the total knee arthroplasty implants, I had myself and my assistants switch to enclosed head gear. We also applied Ioban to the leg. I made a medial parapatellar arthrotomy, after having extended the skin incision more proximally along prior skin incision line. Medial parapatellar arthrotomy was continued down into the joint. At this point, all components could be visualized and were probed and all found to be stable. No aware of the liner or the patellar button. There is significant fibrotic tissue on the undersurface of the patella. This was removed with a knife as well as with our electrocautery. I noted that the patellar button seemed slightly undersized. There was also a significant shelf of patellar bone present, exposed laterally, that was clearly likely to be impinging along the lateral femoral condyle metal component. Therefore, I decided to remove this possible source of painful bony impingement. With rongeurs, I removed the exposed lateral patella, lateral to the patellar button. There was also some bone distal to the patella button that I thinned out, so as not to disrupt the extensor mechanism there, but so as to make the bone slightly less prominent, decreasing the likelihood of postoperative patella baja. I next inspected again the bone attached to the patellar tendon. This bone was very thin, and slightly comminuted. Merely a shell of bone attached to the patellar tendon. I reduced the bony fragments to the tibial tuberosity after cleaning both off with curettes and performing irrigation throughout the knee with pulsatile lavage. I placed a K-wire across the fracture sites and obtained images that showed a reduction of the tibial tuberosity bony fragment. I made a vertical approximately 8 mm slit in the medial aspect of the patellar tendon into the tibial tuberosity fragment. I drilled and then placed a 4.0 mm cancellous screw with washer, bicortically from a tibial tuberosity fracture fragment, directed posteromedially to the posterior cortex of the proximal tibial. My bite was good. I was very happy with the screw. I then attempted to place a screw similarly from the tibial tuberosity bone fragment to the posterolateral cortex of the proximal tibia. I placed this screw using the same technique. However, the bite was not good. The bony fragments along this part of the tibial tuberosity were too thin for a good bite. Therefore, that screw and washer were removed. At this point, I placed suture anchors as per my preoperative plan. I placed 2 Mitek gryphon double-loaded suture anchors. The suture anchors were each placed just distal to the fracture site into cortical bone about the anterior tibia just distal to the fracture line. With each suture anchor, I placed 1 stitch with a Krackow stitch up and down the patellar tendon. With the other stitch, I placed a horizontal mattress stitch from each suture anchor. With this fixation alone, the fracture seemed well reduced and the patellar tendon seemed well attached and reduced with some gentle flexion of the knee. I then had available a metal anchor and placed a metal [employer] 3.5 mm anchor about the medial tibial tuberosity and placed 2 horizontal mattress stitches from that anchor. I next placed my steel wire. I drilled a transverse tunnel, with a small, smaller than 2.0 mm drill bit, from medial to lateral about the anterior tibia distal to the fracture site. I placed a similar transverse drill tunnel through the patella at about its mid point from proximal to distal and about one third of the depth from superficial to deep. I then placed the stainless steel 16-gauge wire through these tunnels and crossed them in a figure-8 pattern superficial to the extensor mechanism. This steel wire was tightened. I next tested my repair. Patient was able to flex her knee passively to 90 degrees without any disruption or movement of the bony reduction and patellar tendon reconstruction. I was very happy with the stability of this repair therefore. Additional pulsatile lavage of tissues. With the knee flexed, we performed a closure of the medial parapatellar arthrotomy using figure-8 stitches using Vicryl 0 or Ethibond 0 suture. Both types of suture were used. Closure of the subcutaneous tissue with buried simple stitches using Vicryl 2-0 suture. Closure of the skin with damian. Xeroform, 4x4's, ABDs, sterile Webril over the knee. Shankar bandage from thigh to lower leg. The ankle then had a splint placed, left ankle. Webril was placed about the left ankle. A posterior plaster splint followed by sugar-tong medial to lateral plaster splint was placed and overwrapped with an Shankar bandage. We then applied a knee brace locked in extension. The patient was then awakened and extubated and brought to the PACU. DISPOSITION: The patient was initially planned for discharge. She had discomfort in PACU, understandable given the major nature of the surgery. As well, she did not think she would be able to deal with nonweightbearing postoperatively at home from a functional perspective. Therefore, the patient was admitted. The patient was to get aspirin b.i.d. for DVT prophylaxis, oral and IV narcotics for pain control, a physical therapy consult in the morning. I also got formal x- ray views, 3 views of the left ankle in PACU for my evaluation. [id number]/[facility] #: [id number] ANURADHA
[2017-06-30] MEDS: Calcium Citrate TAB* 200 MG PO SCH ×2 (08:33→20:16)
[2017-06-30] MEDS: PTO: Anastrozole (NF) 1 MG TAB PO SCH (08:34)
[2017-06-30] MEDS: Enalapril TAB* 5 MG PO SCH (08:34)
[2017-06-30] MEDS: Aspirin TAB* 325 MG PO SCH ×2 (08:34→20:16)
[2017-06-30] MEDS: oxyCODONE/Acetamin 5/325 MG* TAB PO PRN ×2 (08:35→20:15)
[2017-06-30] MEDS: Multivitamins/Minerals TAB PO SCH (08:35)
[2017-06-30] MEDS: Ascorbic Acid TAB* 500 MG PO SCH (08:35)
[2017-06-30] MEDS: Cholecalciferol TAB* 1000 UNITS PO SCH (08:35)
[2017-06-30] MEDS: Citalopram TAB* 40 MG PO SCH (08:35)
[2017-06-30] MEDS: Magnesium Hydroxide LIQ* 30 ML UDC PO SCH ×2 (08:36→20:16)
--- NOTE | 2017-06-30 10:21 | PN ---
Progress Note - Progress Note Date of Service: 06/30/17 SOAP: Subjective: [Pt was seen today sitting up in bed. Pt states that she is doing well. Pain is well controlled with medication. She states that the numbness and tingling of her L foot is continuing to recede. Pt denies any chest pain, n/v. ] Objective: [General: pt is A&O, NAD MSK: LLE: pt continues to have dressings in place. Dressing is c/d/i. Left ankle splint is also c/d/i. Pt is able to wiggle toes, cap refill is less than 2 seconds. Vital Signs Temp 98.2 F 06/30/17 04:15 Pulse 69 06/30/17 04:15 Resp 16 06/30/17 08:35 BP 117/71 06/30/17 04:15 Pulse Ox 100 06/30/17 04:15 Intake & Output 06/29/17 06/30/17 06/30/17 18:59 06:59 18:59 Intake Total 240 1040 200 Output Total 450 450 Balance -210 590 200 Intake: Oral 240 1040 200 Output: Urine 450 450 Other: Estimated Void Medium Large Date of Last Bowel 06/29/17 Movement # Bowel Movements 1 1 Estimated Stool Amount Medium Small # Voids 1 ] Assessment: POD 3 ORIF left periprosthetic tibial tuberosity fracture Closed treatment left ankle fracture] Plan: [Continue with splint of left ankle Continue with NWB LLE Continue with PT Possible placement to rehab on Mon
[2017-06-30] MEDS ORDERED: Scopolamine PATCH Remove* 1 NOTE MISC PATCH OFF ONE (13:09)
[2017-07-01] MEDS: Cholecalciferol TAB* 1000 UNITS PO SCH (09:50)
[2017-07-01] MEDS: Aspirin TAB* 325 MG PO SCH ×2 (09:50→21:52)
[2017-07-01] MEDS: Ascorbic Acid TAB* 500 MG PO SCH (09:51)
[2017-07-01] MEDS: PTO: Anastrozole (NF) 1 MG TAB PO SCH (09:51)
[2017-07-01] MEDS: Citalopram TAB* 40 MG PO SCH (09:51)
[2017-07-01] MEDS: Enalapril TAB* 5 MG PO SCH (09:51)
[2017-07-01] MEDS: Multivitamins/Minerals TAB PO SCH (09:52)
[2017-07-01] MEDS: Calcium Citrate TAB* 200 MG PO SCH ×2 (09:52→21:44)
[2017-07-01] MEDS: Magnesium Hydroxide LIQ* 30 ML UDC PO SCH ×2 (09:59→21:40)
--- NOTE | 2017-07-01 11:58 | PN ---
Progress Note - Progress Note Date of Service: 07/01/17 SOAP: Subjective: Pt was seen today sitting up in chair. Pt states that she is doing well. Pain is well controlled with medication. She states that the numbness and tingling of her L foot is continuing to recede although she does experience a little numbness in particular positions. Pt denies any chest pain, n/v. ] Objective: [General: pt is A&O, NAD MSK: LLE: pt continues to have dressings in place. Dressing is c/d/i. Left ankle splint is also c/d/i. Pt is able to wiggle toes, cap refill is less than 2 seconds. Vital Signs Temp 97.7 F 07/01/17 07:03 Pulse 75 07/01/17 07:03 Resp 17 07/01/17 07:03 BP 116/67 07/01/17 07:03 Pulse Ox 99 07/01/17 07:03 Intake & Output 06/30/17 07/01/17 07/01/17 18:59 06:59 18:59 Intake Total 650 600 Output Total 7719 921 2598 Balance -450 -100 -1050 Intake: Oral 650 600 Output: Urine 0115 385 6061 Other: Date of Last Bowel 07/01/17 Movement # Bowel Movements 1 Estimated Stool Amount Large ] Assessment: POD 4 ORIF left periprosthetic tibial tuberosity fracture Closed treatment left ankle fracture] Plan: [Continue with splint of left ankle Continue with NWB LLE Continue with PT Possible placement to rehab on Mon
[2017-07-02] MEDS: PTO: Anastrozole (NF) 1 MG TAB PO SCH (09:37)
[2017-07-02] MEDS: Ascorbic Acid TAB* 500 MG PO SCH (09:38)
[2017-07-02] MEDS: Calcium Citrate TAB* 200 MG PO SCH (09:38)
[2017-07-02] MEDS: Cholecalciferol TAB* 1000 UNITS PO SCH (09:38)
[2017-07-02] MEDS: Aspirin TAB* 325 MG PO SCH (09:38)
[2017-07-02] MEDS: Citalopram TAB* 40 MG PO SCH (09:38)
[2017-07-02] MEDS: Enalapril TAB* 5 MG PO SCH (09:38)
[2017-07-02] MEDS: Multivitamins/Minerals TAB PO SCH (09:38)
[2017-07-02] MEDS: Magnesium Hydroxide LIQ* 30 ML UDC PO SCH (09:39)
--- NOTE | 2017-07-02 10:17 | PN ---
Progress Note - Progress Note Date of Service: 07/02/17 SOAP: Subjective: []Patient seen OOB in chair. She is ready for DC and has no complaints of pain or otherwise. Denies CP/SOB Objective: [] Vital Signs Temp 98.0 F 07/02/17 11:36 Pulse 68 07/02/17 11:36 Resp 16 07/02/17 12:56 BP 120/77 07/02/17 11:36 Pulse Ox 100 07/02/17 11:36 Intake & Output 07/01/17 07/02/17 07/02/17 18:59 06:59 18:59 Intake Total 560 2200 Output Total 1900 600 500 Balance -1340 1600 -500 Intake: Oral 560 2200 Output: Urine 1900 600 500 Other: Date of Last Bowel 07/01/17 Movement # Bowel Movements 1 1 Estimated Stool Amount Medium Medium Laboratory Last Values WBC 5.2 10^3/ul (3.5-10.8) 06/29/17 10:55 RBC 3.23 10^6/ul (4.0-5.4) L 06/29/17 10:55 Hgb 9.1 g/dl (12.0-16.0) L 06/29/17 10:55 Hct 27 % (35-47) L 06/29/17 10:55 MCV 84 fL (80-97) 06/29/17 10:55 MCH 28 pg (27-31) 06/29/17 10:55 MCHC 34 g/dl (31-36) 06/29/17 10:55 RDW 16 % (10.5-15) H 06/29/17 10:55 Plt Count 181 10^3/ul (150-450) 06/29/17 10:55 MPV 10 um3 (7.4-10.4) 06/29/17 10:55 Neut % (Auto) 74.9 % (38-83) 06/29/17 10:55 Lymph % (Auto) 15.0 % (25-47) L 06/29/17 10:55 [place] % (Auto) 9.0 % (1-9) 06/29/17 10:55 Eos % (Auto) 0.6 % (0-6) 06/29/17 10:55 Baso % (Auto) 0.5 % (0-2) 06/29/17 10:55 Absolute Neuts (auto) 3.9 10^3/ul (1.5-7.7) 06/29/17 10:55 Absolute Lymphs (auto) 0.8 10^3/ul (1.0-4.8) L 06/29/17 10:55 Absolute Monos (auto) 0.5 10^3/ul (0-0.8) 06/29/17 10:55 Absolute Eos (auto) 0 10^3/ul (0-0.6) 06/29/17 10:55 Absolute Basos (auto) 0 10^3/ul (0-0.2) 06/29/17 10:55 Absolute Nucleated RBC 0 10^3/ul 06/29/17 10:55 Nucleated RBC % 0 06/29/17 10:55 Sodium 138 mmol/L (133-145) 06/29/17 10:55 Potassium 3.6 mmol/L (3.5-5.0) 06/29/17 10:55 Chloride 103 mmol/L (101-111) 06/29/17 10:55 Carbon Dioxide 28 mmol/L (22-32) 06/29/17 10:55 Anion Gap 7 mmol/L (2-11) 06/29/17 10:55 BUN 15 mg/dL (6-24) 06/29/17 10:55 Creatinine 0.70 mg/dL (0.51-0.95) 06/29/17 10:55 Est GFR ( Amer) 108.7 (>60) 06/29/17 10:55 Est GFR (Non-Af Amer) 84.5 (>60) 06/29/17 10:55 BUN/Creatinine Ratio 21.4 (8-20) H 06/29/17 10:55 Glucose 128 mg/dL (70-100) H 06/29/17 10:55 Calcium 9.0 mg/dL (8.6-10.3) 06/29/17 10:55 General: OOB in chair. NAD LLE: Immobilizer in place. Dressing of left knee changed. Incision CDI without erythema or edema. Splint in place. Sensation intact distally to light touch. Assessment: []POD 5 ORIF left periprosthetic tibial tuberosity fracture Closed treatment left ankle fracture] Plan: [Continue with splint of left ankle Continue with NWB LLE Continue with PT DC to CR
[2017-07-02 11:51] VITALS: BP 120/77
[2017-07-02] MEDS: oxyCODONE/Acetamin 5/325 MG* TAB PO PRN (12:56)
--- NOTE | 2017-07-02 13:16 | DS ---
DATE OF ADMISSION: 06/28/2017. DATE OF DISCHARGE: 07/02/2017. DATE OF OPERATION: 06/27/2017. PROVIDER: Dr. Austyn Patel* (dictated by JUAN CARLOS Kendrick). PREOPERATIVE DIAGNOSES: Left knee periprosthetic tibial tuberosity fracture with patellar tendon avulsion, history of left knee arthroplasty and left ankle pain. OPERATIVE PROCEDURES: 1. ORIF of the left tibial tuberosity fracture periprosthetic. 2. Left knee open ostectomy. 3. Left knee open evaluation of component of left knee arthroplasty. 4. Examination under anesthesia, left ankle. 5. Closed treatment of left ankle lateral malleolus fracture. 6. Short leg splint application left ankle. HISTORY: The patient had suffered a left ankle and left tibial tuberosity periprosthetic fracture. The left tibial tuberosity periprosthetic fracture was deemed to require surgery. HOSPITAL COURSE: The patient was admitted to [facility] on 2017. She underwent her operation on 06/27/2017. Operative procedures consisted of an ORIF of the left tibial tuberosity fracture which was periprosthetic, left knee open ostectomy, left knee open evaluation of component of total knee arthroplasty, examination under anesthesia of the left ankle, closed treatment of the left ankle lateral malleolus fracture and short leg splint application of the left ankle. She tolerated the procedure well. She was transferred to the PACU and then to the Short Stay Surgical Unit in stable condition. She was seen on the operative day, June 28. Her splint was clean, dry and intact. Sensation was intact and brisk capillary refill of toes which are exposed. Her left ankle fracture was determined to be stable without operative treatment. On postop day two, the patient's dressing was clean, dry and intact with an immobilizer in place. The patient's dressing was clean, dry and intact with an immobilizer in place zero degrees. The patient was again able to wiggle her toes and had sensation in her toes. Capillary refill less than two seconds. Her hemoglobin was 9.1, her hematocrit was 27. Postop day three, dressing over her left knee was changed. Incision was clean, dry and intact. Left lower extremity was neurovascularly intact. Postop day four, dressing was changed. Incision was clean, dry and intact without surrounding erythema or discharge. Splint is in place, clean, dry and intact. Toes neurovascularly intact. Vital signs: Temperature 98, pulse 68, respiratory rate 17, oxygen saturation 100, blood pressure 120/77. The patient is deemed to be medically and orthopedically stable for discharge. She will be discharged to [facility]. CONSULTATIONS: Occupational Therapy and Physical Therapy. DISCHARGE MEDICATIONS: 1. Aspirin 325 mg p.o. b.i.d. 2. Calcium citrate 1200 mg p.o. b.i.d. 3. Vitamin D 5000 units p.o. q.a.m. 4. Celexa 40 mg p.o. q.a.m. 5. Enalapril 10 mg p.o. q.a.m. 6. Percocet 5/325 mg one to two tabs p.o. every 4 to 6 hours as needed for pain , not to exceed 10 tablets per day. DISCHARGE PLAN: Continue with splint of left ankle, to be kept clean, dry and intact. Nurses may change the ABD pad and Shankar wrap over the left knee daily. Follow-up in the office with Dr. Patel this week for splint care and cast placement. Remain nonweightbearing left lower extremity. Continue physical therapy. Left knee with passive range of motion 0 to 20 degrees only with no active range of motion. Aspirin 325 mg p.o. every 12 hours, and for pain Percocet 5/325 mg, one to two tabs every four to six hours as needed for pain, not to exceed ten tablets per day. Please note that Percocet contains Tylenol, please do not exceed more than 4000 mg of Tylenol per day from all sources. JUAN CARLOS REDD [id number]/[facility] #: [id number] [facility] CENTERRamirez
== END 2017-07-02 13:25 | DRG 313 ==
LOC: OR 09:13 → SSU 13:00 → INTOOBSV 21:45 → SSU 21:45 → OBSVTOIN 06-28 13:00
PROVIDERS: ADMIT Orthopaedic Surgery; ATTEND Orthopaedic Surgery
PROC: 0QBF0ZZ Excision of Left Patella, Open Approach (ICD-10-PCS; 2017-06-27)
PROC: 0YJ Anatomical Regions, Lower Extremities, Inspection (ICD-10-PCS; 2017-06-27)
PROC: 2W3TX1Z Immobilization of Left Foot using Splint (ICD-10-PCS; 2017-06-27)
PROC: 0QSH04Z Reposition Left Tibia with Internal Fixation Device, Open Approach (ICD-10-PCS; principal; 2017-06-27 11:00)
DX: S82.152A Displaced fracture of left tibial tuberosity, initial encounter for closed fracture (principal); E11.9 Type 2 diabetes mellitus without complications; S82.62XA Displaced fracture of lateral malleolus of left fibula, initial encounter for closed fracture; S76.192A Other specified injury of left quadriceps muscle, fascia and tendon, initial encounter; W00.0XXA Fall on same level due to ice and snow, initial encounter; Y92.89 Other specified places as the place of occurrence of the external cause; I10 Essential (primary) hypertension; M19.90 Unspecified osteoarthritis, unspecified site; Z96.652 Presence of left artificial knee joint; F32.89 Other specified depressive episodes; F41.9 Anxiety disorder, unspecified; M25.862 Other specified joint disorders, left knee; M10.9 Gout, unspecified; Z80.3 Family history of malignant neoplasm of breast; Z79.1 Long term (current) use of non-steroidal anti-inflammatories (NSAID); Z79.899 Other long term (current) drug therapy; Z88.8 Allergy status to other drugs, medicaments and biological substances; Z91.040 Latex allergy status; Z83.3 Family history of diabetes mellitus; Z80.9 Family history of malignant neoplasm, unspecified; Z87.891 Personal history of nicotine dependence; Z98.84 Bariatric surgery status
CPT/HCPCS: 36415; 76000; 76001; 80048; 85025; A9270-GY; G0378; J0690; J1100; J1170; J1885; J2250; J2270; J2405; J2704; J3010; J3490